=== PATIENT | female | born 1970 | race Caucasian/White ===

== ENCOUNTER 2021-11-01 05:27 | Emergency (ER) | payer SELFPAY ==
[~2021-11-01] VITALS: Ht 170.2 cm; Wt 81.6 kg
[2021-11-01] MEDS ORDERED: LIDOCAINE HCL 2% 20 ML VIAL ONE (06:51)
[2021-11-01] MEDS ORDERED: TDAP DIPH,PERTUSS,TET VAC/PF 0.5 ML DISP.SYRIN IM ONE ×2 (07:30→07:42)
--- NOTE | 2021-11-01 07:49 | NUR ---
Pt remained alert, oriented, with no resp distress. Pt says she incurred a cut while shaving her arm.
[2021-11-01 07:54] VITALS: BP 122/74
== END 2021-11-01 07:49 | disposition home or self-care (01) ==
LOC: ER 06:01
DX: S51.812A Laceration without foreign body of left forearm, initial encounter (principal); W45.8XXA Other foreign body or object entering through skin, initial encounter; Y93.E8 Activity, other personal hygiene; Y92.89 Other specified places as the place of occurrence of the external cause
CPT/HCPCS: 99283; 90715; 90471; 12002; J3490; A4663

== ENCOUNTER 2022-02-09 00:19 | Emergency (ER) | payer SELFPAY ==
--- NOTE | 2022-02-09 01:16 | NUR ---
Pt not in waiting room.
== END 2022-02-09 01:54 | disposition left against medical advice (07) ==
LOC: ER 00:21
DX: Z53.21 Procedure and treatment not carried out due to patient leaving prior to being seen by health care provider (principal)

== ENCOUNTER 2024-06-14 04:52 | Emergency (ER) | payer MEDICAID ==
[~2024-06-14] VITALS: Ht 170.2 cm; Wt 108.9 kg
[2024-06-14 07:21] LABS: *BILIRUBIN,URIN NEGATIVE (NEGATIVE); *BLOOD, URINE 3+ (NEGATIVE); *COLOR,URINE YELLOW (YELLOW); *KETONES,URINE 1+ (NEGATIVE); *PROTEIN,URINE 2+ (NEGATIVE); *UROBILINOGEN,URINE 0.2 E.U./dl (NORMAL); LEUKOCYTE ESTERASE ,URINE 3+ (NEGATIVE); NITRITE, URINE NEGATIVE (NEGATIVE); UGLUCOSE NEGATIVE (NEGATIVE)
[2024-06-14 07:25] LABS: *CLARITY,URINE TURBID (CLEAR)
[2024-06-14 07:34] LABS: BACTERIA,URINE MANY /HPF (NONE SEEN); RBC,URINE TNTC /HPF (0-3); SQUAMOUS EPITHELIAL CELL,UR FEW /HPF (NONE SEEN); WBC,URINE TNTC /HPF (0-3)
[2024-06-14 07:35] LABS: URINE AMORPHOUS URATE MANY /HPF
[2024-06-14 07:38] LABS: BASOPHILS % (AUTO) 0.3 % (0.0-2.0); EOSINOPHILS # (AUTO) 0.1 K/uL (0.0-0.7); HEMATOCRIT 35.8 % (31.2-41.9); HEMOGLOBIN 11.9 g/dL (10.9-14.3); LYMPHOCYTES % (AUTO) 14.5 % (20.5-51.5); MEAN CORPUSCULAR HEMOGLOBIN 27.9 uug (24.7-32.8); MEAN CORPUSCULAR HGB CONC 33 g/dL (32.3-35.6); MEAN CORPUSCULAR VOLUME 84.2 fL (75.5-95.3); MONOCYTES # (AUTO) 1.3 K/uL (0.1-1.30); MONOCYTES % (AUTO) 9.3 % (0.0-11.0); NEUTROPHILS # (AUTO) 10.4 K/uL (1.8-8.9); NEUTROPHILS % (AUTO) 74.9 % (38.5-71.5); PLATELET COUNT (AUTO) 331 K/uL (179-408); RED BLOOD CELL COUNT(AUTO) 4.25 MIL/uL (3.63-4.92); RED CELL DISTRIBUTION WIDTH 15.1 % (12.3-17.7); WHITE BLOOD COUNT (AUTO) 13.9 K/uL (3.8-11.8)
[2024-06-14 07:39] LABS: DIFFERENTIAL COMMENT 1
[2024-06-14 07:40] LABS: *AMPHETAMINE, URINE POSITIVE (NEGATIVE); *BARBITURATE, URINE NEGATIVE (NEGATIVE); *BENZODIAZEPINE, URINE NEGATIVE (NEGATIVE); *CANNABINOID, URINE NEGATIVE (NEGATIVE); *COCCAINE, URINE NEGATIVE (NEGATIVE); *OPIATE, URINE NEGATIVE (NEGATIVE); *PHENCYCLIDINE SCREEN,URINE NEGATIVE (NEGATIVE); FENTANYL, URINE NEGATIVE (NEGATIVE)
[2024-06-14 07:46] LABS: CARBON DIOXIDE 25 mmol/L (21-32); CHLORIDE 104 mmol/L (98-107); CREATININE 0.7 mg/dL (0.6-1.3); GLUCOSE 121 mg/dL (74-106); SODIUM SERUM 140 mmol/L (136-145); UREA NITROGEN, BLOOD 16 mg/dL (7-18)
[2024-06-14 07:48] LABS: ALBUMIN 3.4 g/dL (3.4-5.0)
[2024-06-14 07:55] LABS: ETHANOL < 3 MG/DL (0-10)
[2024-06-14 08:03] LABS: ALANINE AMINOTRANSFERASE 42 U/L (14-59); ALKALINE PHOSPHATASE 114 U/L (50-136); ASPARTATE AMINOTRANSFERASE 53 U/L (15-37); BILIRUBIN,DIRECT 0.2 mg/dL (0.0-0.2); BILIRUBIN,TOTAL 0.7 mg/dL (0.2-1.0); TOTAL PROTEIN, SERUM 7.3 g/dL (6.4-8.2)
[2024-06-14 08:05] LABS: ACETAMINOPHEN < 10.0 ug/mL (10-30)
[2024-06-14 08:11] LABS: PREGNANCY TEST SERUM QUAN 1 miul/L (0-6)
[2024-06-14] MEDS ORDERED: DOXY100C5 PO (11:39)
[2024-06-14] MEDS ORDERED: CEFTRIAXONE 1 G VIAL ONE (11:48)
[2024-06-14] MEDS ORDERED: LIDOCAINE HCL 1% 20 ML VIAL ONE (11:48)
[2024-06-14] MEDS: CEFTRIAXONE 1 G VIAL IM ONE (11:55)
[2024-06-14 12:25] LABS: HIV-1 p24 ANTIGEN NON REACTIVE (NONREACTIVE); HIV-1/2 ANTIBODY NON REACTIVE (NONREACTIVE)
[2024-06-14 13:46] VITALS: BP 138/63; O2SAT 99
[2024-06-15 13:08] LABS: *CHLAMYDIA NAA Negative (Negative); *GC NAA Positive (Negative); *TRIC.VAG. NAA Positive (Negative)
== END 2024-06-14 13:46 | disposition home or self-care (01) ==
LOC: ER 05:12
DX: N71.9 Inflammatory disease of uterus, unspecified (principal); F17.200 Nicotine dependence, unspecified, uncomplicated; Z59.00 Homelessness unspecified; Z88.7 Allergy status to serum and vaccine; Z90.49 Acquired absence of other specified parts of digestive tract; Z20.822 Contact with and (suspected) exposure to COVID-19
CPT/HCPCS: 80076; 80048; 81001; 87806; 85025; 85730; 87426; 87086; 87210; 84702; 36415; 76856; 99285; 96372; 87536; 87491; 80299; 80320; 80307; 86592; J0696; J3490; A4606; A4663; G0480

== ENCOUNTER 2024-06-15 07:26 | Emergency (ER) | payer MEDICAID ==
[~2024-06-15] VITALS: Ht 170.2 cm; Wt 108.9 kg
[~2024-06-15 07:26] MED LIST: DOXY100C5 PO
[2024-06-15 17:17] VITALS: BP 121/69; O2SAT 98
== END 2024-06-15 17:17 | disposition home or self-care (01) ==
LOC: ER 07:42
DX: N71.9 Inflammatory disease of uterus, unspecified (principal); F17.200 Nicotine dependence, unspecified, uncomplicated; Z59.00 Homelessness unspecified; Z88.7 Allergy status to serum and vaccine; Z90.49 Acquired absence of other specified parts of digestive tract
CPT/HCPCS: 98960; A4606; A4663

== ENCOUNTER 2024-07-28 15:28 | Emergency (ER) | payer SELFPAY ==
[~2024-07-28] VITALS: Ht 170.2 cm; Wt 108.9 kg
[2024-07-28 16:52] LABS: *URINE HCG, QUAL NEGATIVE (NEGATIVE)
[2024-07-28 17:22] LABS: *BILIRUBIN,URIN NEGATIVE (NEGATIVE); *BLOOD, URINE 3+ (NEGATIVE); *COLOR,URINE YELLOW (YELLOW); *KETONES,URINE NEGATIVE (NEGATIVE); *PROTEIN,URINE 1+ (NEGATIVE); LEUKOCYTE ESTERASE ,URINE 3+ (NEGATIVE); NITRITE, URINE NEGATIVE (NEGATIVE); UGLUCOSE NEGATIVE (NEGATIVE)
[2024-07-28 17:28] LABS: *AMPHETAMINE, URINE POSITIVE (NEGATIVE); *BARBITURATE, URINE NEGATIVE (NEGATIVE); *BENZODIAZEPINE, URINE NEGATIVE (NEGATIVE); *CANNABINOID, URINE NEGATIVE (NEGATIVE); *COCCAINE, URINE NEGATIVE (NEGATIVE); *OPIATE, URINE NEGATIVE (NEGATIVE); *PHENCYCLIDINE SCREEN,URINE NEGATIVE (NEGATIVE); FENTANYL, URINE NEGATIVE (NEGATIVE)
[2024-07-28 17:32] LABS: *CLARITY,URINE CLOUDY (CLEAR)
[2024-07-28 17:39] LABS: WBC,URINE 50-80 /HPF (0-3)
[2024-07-28 17:40] LABS: BACTERIA,URINE FEW /HPF (NONE SEEN); SQUAMOUS EPITHELIAL CELL,UR MODERATE /HPF (NONE SEEN)
[2024-07-28 17:41] LABS: TRICHOMONAS,URINE MODERATE /HPF (NONE SEEN)
[2024-07-28] MEDS ORDERED: SULF1TAB48 PO (17:45)
[2024-07-28] MEDS ORDERED: SULFAMETH/TRIMETH 800/160 MG TABLET ONE (17:56)
[2024-07-28] MEDS: SULFAMETH/TRIMETH 800/160 MG TABLET PO ONE (18:04)
[2024-07-28 18:16] VITALS: BP 134/87; TEMP 97.8; O2SAT 97
== END 2024-07-28 18:16 | disposition home or self-care (01) ==
LOC: ER 15:28
DX: N39.0 Urinary tract infection, site not specified (principal); F17.200 Nicotine dependence, unspecified, uncomplicated; Z59.00 Homelessness unspecified; Z88.7 Allergy status to serum and vaccine; Z90.49 Acquired absence of other specified parts of digestive tract
CPT/HCPCS: 84703; 87086; A4606; A4663

== ENCOUNTER 2025-01-22 00:21 | Emergency (ER) | payer SELFPAY ==
[~2025-01-22] VITALS: Ht 170.2 cm; Wt 104.3 kg
[~2025-01-22 00:21] MED LIST changes: +SULF1TAB48 PO
[2025-01-22 00:31] VITALS: BP 106/63
[2025-01-22 01:10] LABS: *BILIRUBIN,URIN 1+ (NEGATIVE); *BLOOD, URINE 2+ (NEGATIVE); *CLARITY,URINE SLIGHTLY CLOUDY (CLEAR); *COLOR,URINE YELLOW (YELLOW); *UROBILINOGEN,URINE 0.2 E.U./dl (NORMAL); LEUKOCYTE ESTERASE ,URINE 1+ (NEGATIVE); NITRITE, URINE NEGATIVE (NEGATIVE); UGLUCOSE NEGATIVE (NEGATIVE)
[2025-01-22 01:13] LABS: *PROTEIN,URINE TRACE (NEGATIVE)
[2025-01-22 01:14] LABS: *KETONES,URINE NEGATIVE (NEGATIVE)
[2025-01-22 01:17] LABS: PLATELET COUNT (AUTO) 319 K/uL (179-408); RED BLOOD CELL COUNT(AUTO) 4.79 MIL/uL (3.63-4.92); RED CELL DISTRIBUTION WIDTH 14.8 % (12.3-17.7); WHITE BLOOD COUNT (AUTO) 10.1 K/uL (3.8-11.8)
[2025-01-22 01:24] LABS: CREATININE 0.9 mg/dL (0.6-1.3); SODIUM SERUM 142.0 mmol/L (136-145); UREA NITROGEN, BLOOD 20.0 mg/dL (7-18)
[2025-01-22 01:26] LABS: SQUAMOUS EPITHELIAL CELL,UR MODERATE /HPF (NONE SEEN)
[2025-01-22 01:30] LABS: ASPARTATE AMINOTRANSFERASE 16.0 U/L (15-37); TOTAL PROTEIN, SERUM 7.7 g/dL (6.4-8.2)
[2025-01-22] MEDS ORDERED: FLUCONAZOLE 100 MG TABLET ONE (02:42)
[2025-01-22] MEDS ORDERED: METR500T PO (02:43)
[2025-01-22] MEDS ORDERED: CEPH500C2 PO (02:43)
[2025-01-22] MEDS: FLUCONAZOLE 100 MG TABLET PO ONE (02:44)
[2025-01-22 02:48] VITALS: BP 106/63; O2SAT 96
== END 2025-01-22 02:49 | disposition home or self-care (01) ==
LOC: ER 00:33
DX: N39.0 Urinary tract infection, site not specified (principal); N89.8 Other specified noninflammatory disorders of vagina; K43.9 Ventral hernia without obstruction or gangrene; F17.200 Nicotine dependence, unspecified, uncomplicated; E11.9 Type 2 diabetes mellitus without complications; Z59.00 Homelessness unspecified; Z88.7 Allergy status to serum and vaccine; Z90.49 Acquired absence of other specified parts of digestive tract
CPT/HCPCS: 36415; 74018; 83690; 85025; 87086; A4606; A4663